=== PATIENT | male | born 1990 | race Caucasian/White ===

== ENCOUNTER 2017-06-08 18:54 | Emergency (ER) | payer OTHER ==
[~2017-06-08] VITALS: Ht 177.8 cm; Wt 88.5 kg
[~2017-06-08 18:54] MED LIST: BENTYL10 MG PO; FLAGYL500 MG PO; LEVAQUIN750 M1 PO; ZANTAC 150150 MG PO
[2017-06-08] MEDS ORDERED: NAPROSYN500 MG PO (19:15)
== END 2017-06-08 20:43 ==
LOC: ED 18:54
DX: S93.601A Unspecified sprain of right foot, initial encounter (principal); W23.0XXA Caught, crushed, jammed, or pinched between moving objects, initial encounter; Y93.89 Activity, other specified; Y92.89 Other specified places as the place of occurrence of the external cause; Y99.8 Other external cause status

== ENCOUNTER 2018-05-01 16:17 | Emergency (ER) | payer SELFPAY ==
[~2018-05-01] VITALS: Ht 170.1 cm; Wt 79.4 kg
[~2018-05-01 16:17] MED LIST changes: +NAPROSYN500 MG PO
[2018-05-01] MEDS ORDERED: CLINDAMYCIN HC300 MG PO (16:30)
[2018-05-01] MEDS ORDERED: ANAPROX DS550 MG PO (16:30)
== END 2018-05-01 17:19 | disposition home or self-care (01) ==
LOC: ED 16:17
DX: K04.7 Periapical abscess without sinus (principal); F17.200 Nicotine dependence, unspecified, uncomplicated

== ENCOUNTER 2018-06-30 15:15 | Emergency (ER) | payer SELFPAY ==
[~2018-06-30] VITALS: Wt 74.8 kg
[~2018-06-30 15:15] MED LIST changes: +ANAPROX DS550 MG PO; +CLINDAMYCIN HC300 MG PO
[2018-06-30] MEDS ORDERED: NORCO 5-325 TA1 EACH PO (18:40)
[2018-06-30] MEDS ORDERED: AUGMENTIN 875875 MG PO (18:40)
== END 2018-06-30 18:45 | disposition home or self-care (01) ==
LOC: ED 15:15
DX: S02.19XA Other fracture of base of skull, initial encounter for closed fracture (principal); S09.8XXA Other specified injuries of head, initial encounter; S13.4XXA Sprain of ligaments of cervical spine, initial encounter; F17.200 Nicotine dependence, unspecified, uncomplicated; Y04.0XXA Assault by unarmed brawl or fight, initial encounter; Y93.89 Activity, other specified; Y92.89 Other specified places as the place of occurrence of the external cause; Y99.8 Other external cause status